=== PATIENT | female | born 2000 | race Caucasian/White ===

== ENCOUNTER 2020-10-19 15:51 | Emergency (ER) | payer OTHER, SELFPAY ==
[~2020-10-19] VITALS: Ht 167.6 cm; Wt 54.4 kg
[2020-10-19 16:10] VITALS: BP_SYST 132
[2020-10-19] MEDS ORDERED: NACL 0.9% 1,000 ML IV ONE (16:30)
[2020-10-19 16:41] LABS: BASOPHILS % (AUTO) 0.9 % (0.0-2.0); HEMATOCRIT 37.6 % (36-48); HEMOGLOBIN 12.4 g/dL (12.0-16.0); LYMPHOCYTES # (AUTO) 0.5 K/uL (1.0-5.5); LYMPHOCYTES % (AUTO) 17.7 % (20.5-51.5); MEAN CORPUSCULAR HEMOGLOBIN 27 pg (27-31); MEAN CORPUSCULAR HGB CONC 33 % (32-36); MEAN CORPUSCULAR VOLUME 82 fL (79.0-98.0); MONOCYTES # (AUTO) 0.3 K/uL (0.0-1.0); NEUTROPHILS # (AUTO) 1.8 K/uL (1.8-7.7); NEUTROPHILS % (AUTO) 70.4 % (40.0-70.0); PLATELET COUNT (AUTO) 165 K/uL (130-430); WHITE BLOOD COUNT (AUTO) 2.6 K/uL (4.8-10.8)
[2020-10-19 17:01] LABS: CREATININE 0.74 mg/dL (0.55-1.30); POTASSIUM 3.4 mmol/L (3.5-5.1)
[2020-10-19 17:19] LABS: INFLUENZA A&B ANTIGEN SCREEN NEGATIVE FOR A & B (NEGATIVE)
[2020-10-19 17:42] LABS: MONOTEST NEGATIVE (NEGATIVE)
[2020-10-19 17:50] VITALS: BP_SYST 132
== END 2020-10-19 17:50 | disposition home or self-care (01) ==
LOC: SED 15:51
DX: R53.83 Other fatigue (principal); R50.9 Fever, unspecified; I95.1 Orthostatic hypotension; Z20.822 Contact with and (suspected) exposure to COVID-19
CPT/HCPCS: 36415; 71045; 80048; 84145; 85025; 86308; 86710; 87426; 93005; 96360; 99285; J7030